=== PATIENT | female | born 1990 | race Two or more races ===

== ENCOUNTER 2021-08-26 23:11 | Emergency (ER) | payer OTHER ==
[~2021-08-26] VITALS: Ht 175.3 cm; Wt 77.1 kg
[2021-08-27] MEDS ORDERED: KETO10TA2 PO (02:34)
== END 2021-08-27 02:51 ==
LOC: ER 23:11
DX: S82.852A Displaced trimalleolar fracture of left lower leg, initial encounter for closed fracture (principal); W18.39XA Other fall on same level, initial encounter; Y93.89 Activity, other specified; Y92.511 Restaurant or cafe as the place of occurrence of the external cause; Y99.9 Unspecified external cause status